=== PATIENT | female | born 1940 | race Caucasian/White ===

== ENCOUNTER 2023-08-17 13:43 | Emergency (ER) | payer OTHER, SELFPAY ==
[2023-08-17 13:49] VITALS: BP 169/58
[2023-08-17 14:08] LABS: % Basophils 0.6 % (0-2); % Eosinophils 2.8 % (0-6); % Immature Granulocytes 0.2 % (0-0.5); % Lymphocytes 31.6 % (20.5-51.1); % Neutrophils 54.8 % (42.2-75.2); Absolute Eosinophils 0.2 10^3/uL (0-0.7); Absolute Lymphocytes 2.1 10^3/uL (1.2-3.4); Absolute Monocytes 0.7 10^3/uL (0.1-0.6); Absolute Neutrophils 3.6 10^3/uL (1.4-6.5); Hematocrit 38.7 % (37.0-47.0); Hemoglobin 13.2 g/dL (12.0-16.0); Mean Corp Hgb Conc. 34.1 g/dL (33.0-37.0); Mean Corpuscular Hgb 30.6 pg (27.0-31.0); Mean Corpuscular Volume 89.6 fL (81.0-99.0); Mean Platelet Volume 9.4 fL (7.4-10.4); Nucleated Red Blood Cells % 0 %; Platelet Count 246 10^3/uL (130-400); Red Blood Cell Count 4.32 10^6/uL (4.20-5.40); Red Cell Dist. Width 13.7 % (11.5-14.5); White Blood Cell Count 6.5 10^3/uL (4.8-10.8)
[2023-08-17 14:34] LABS: ALT (SGPT) 27 U/L (0-35); AST (SGOT) 26 U/L (14-36); Albumin 4.3 g/dl (3.5-5.0); Alkaline Phosphatase 103 U/L (38-126); Blood Urea Nitrogen 23 mg/dl (7-17); Carbon Dioxide 29 mmol/L (22-30); Chloride 104 mmol/L (98-107); Glucose 96 mg/dl (70-99); Potassium 4.8 mmol/L (3.5-5.1); Sodium 139 mmol/L (135-145); Total Bilirubin 0.4 mg/dl (0.2-1.3); Total Protein 6.6 g/dl (6.3-8.2); eGFR > 60.00
[2023-08-17 14:36] LABS: Troponin I < 0.012 ng/ml
[2023-08-17 16:11] VITALS: BP 149/61; BMI 28.5
--- NOTE | 2023-08-17 16:11 | ED.GENMED ---
History of Present Illness
<Bubba Tsang PA-C - Last Filed: 08/17/23 21:45>
General
Chief Complaint: Chest Pain
Source: patient
Exam Limitations: none
Time Seen by Provider: 08/17/23 15:57
Travel History
Have you had any contact with someone who has COVID-19?: No
Do you have any symptoms of coronavirus? Fever > 100 degrees, chills, cough, shortness of breath, sore throat, loss of taste or smell, muscle aches, or headache?: No
History of Present Illness
History of Present Illness:
83-year-old female with history of [id number]-ruihoiz-vllxhrjsm diabetes, hyperlipidemia presents with epigastric abdominal pain that radiates to the back. This started 5 days ago and doing fairly constant. Does seem to get worse with eating. She denies
shortness of breath. No leg swelling or calf pain. The pain is not pleuritic. She states at the onset of her symptoms she had loose watery stools for 2 days and developed pain. No urinary symptoms. Prior abdominal surgical history includes
partial colectomy secondary to precancerous lesion found. She also has history of appendectomy.
Past History
<Bubba Tsang PA-C - Last Filed: 08/17/23 21:45>
Past History
ED Past Medical History: HTN, Hypercholesterolemia and Other (kidney stones, medulllary sponge kidney, UTI's)
ED Past Surgical History: Other (Kidney surgery)
Social History
Tobacco: Non-smoker
Alcohol: None
Personal:
Living: with family
Employment: Employed
Phy Exam
<Bubba Tsang PA-C - Last Filed: 08/17/23 21:45>
Physical Exam
Physical Exam:
General: Well-appearing female no acute respiratory distress
HEENT: Normocephalic atraumatic
Heart: Regular rate and rhythm no murmurs
Lungs: Clear no wheeze or rales
Abdomen soft tender to the epigastric region positive Ross sign and tender to the right upper quadrant. Mild bilateral costovertebral angle tenderness as well nondistended no lower quadrant tenderness
Extremities: No cyanosis or edema
Scores
<Bubba Tsang PA-C - Last Filed: 08/17/23 21:45>
Heart Score for Chest Pain Patients
STEMI patient?: No
History: Slightly or Non-Suspicious
ECG: Normal
Age: >/= 65 years
Risk Factors: No Risk Factors
Troponin: </= Normal Limit
Heart Score for Chest Pain Patients: 2
Heart Score Risk: 2.5% MACE over next 6 weeks
Course
<Bubba Tsang PA-C - Last Filed: 08/17/23 21:45>
Orders/Labs/Results
Orders:
Orders
08/17/23 13:48
Electrocardiogram (*1) Urgent
Reason for Study: Chest Pain
EKG- Treatment ONCE
08/17/23 14:00
Complete Blood Count/With Diff Urgent
Comprehensive Metabolic Panel Urgent
Lipase Urgent
Comment: LIPASE ADDED ON BY FLOOR 4PM 08-17-23
Troponin I Urgent
08/17/23 16:09
Add On- LAB Urgent
Tests Added?: lipase
US Abdomen Complete/Upper Urgent
Comment:
Reason For Exam: RUQ pain
08/17/23 17:26
Urinalysis Reflex To Culture Urgent
Date Specimen was Collected: 08/17/23
Time Specimen was Collected: 17:24
Urine Microscopic Reflex Cult Urgent
Urine Culture Urgent
ASHISH Source: U
Specimen Description:
Date Specimen was Collected: 08/17/23
Time Specimen was Collected: 17:24
08/17/23 18:45
CT Abd/pelvis W Iv Cont Urgent
Comment:
Reason For Exam: abdominal pain
Abnormal Lab Results
08/17/23 08/17/23
14:00 17:26
Absolute Monos (auto) 0.7 H 10^3/uL
(0.1-0.6)
Monocytes % 10.0 H %
(1.7-9.3)
BUN 23 H mg/dl
(7-17)
Creatinine 0.5 L mg/dL
(0.6-1.0)
Urine Ketones 1+ A
(Negative)
Leukocyte Esterase Rfl 1+ A
(Negative)
Urine WBC (Reflex) 11-15 A /HPF
(0-5)
Urine Bacteria (Reflex) Moderate A
(Negative)
08/17/23 14:00
08/17/23 14:00
Vital Signs
Initial and Last Documented VS:
Initial Vital Signs
Temp Pulse Resp BP Pulse Ox
98.0 F 64 18 169/58 96
08/17/23 13:49 08/17/23 13:49 08/17/23 13:49 08/17/23 13:49 08/17/23 13:49
Last Documented Vital Signs
Temp Pulse Resp BP Pulse Ox
98.0 F 58 21 148/60 98
08/17/23 13:49 08/17/23 20:00 08/17/23 20:00 08/17/23 20:00 08/17/23 18:36
<John Mccray MD - Last Filed: 08/17/23 18:55>
Orders/Labs/Results
Orders:
Orders
08/17/23 13:48
Electrocardiogram (*1) Urgent
Reason for Study: Chest Pain
EKG- Treatment ONCE
08/17/23 14:00
Complete Blood Count/With Diff Urgent
Comprehensive Metabolic Panel Urgent
Lipase Urgent
Comment: LIPASE ADDED ON BY FLOOR 4PM 08-17-23
Troponin I Urgent
08/17/23 16:09
Add On- LAB Urgent
Tests Added?: lipase
US Abdomen Complete/Upper Urgent
Comment:
Reason For Exam: RUQ pain
08/17/23 17:26
Urinalysis Reflex To Culture Urgent
Date Specimen was Collected: 08/17/23
Time Specimen was Collected: 17:24
Urine Microscopic Reflex Cult Urgent
Urine Culture Urgent
ASHISH Source: U
Specimen Description:
Date Specimen was Collected: 08/17/23
Time Specimen was Collected: :
08/17/23 18:45
CT Abd/pelvis W Iv Cont Urgent
Comment:
Reason For Exam: abdominal pain
Abnormal Lab Results
08/17/23 08/17/23
14:00 17:26
Absolute Monos (auto) 0.7 H 10^3/uL
(0.1-0.6)
Monocytes % 10.0 H %
(1.7-9.3)
BUN 23 H mg/dl
(7-17)
Creatinine 0.5 L mg/dL
(0.6-1.0)
Urine Ketones 1+ A
(Negative)
Leukocyte Esterase Rfl 1+ A
(Negative)
Urine WBC (Reflex) 11-15 A /HPF
(0-5)
Urine Bacteria (Reflex) Moderate A
(Negative)
08/17/23 14:00
08/17/23 14:00
Vital Signs
Initial and Last Documented VS:
Initial Vital Signs
Temp Pulse Resp BP Pulse Ox
98.0 F 64 18 169/58 96
08/17/23 13:49 08/17/23 13:49 08/17/23 13:49 08/17/23 13:49 08/17/23 13:49
Last Documented Vital Signs
Temp Pulse Resp BP Pulse Ox
98.0 F 58 21 148/60 98
08/17/23 13:49 08/17/23 20:00 08/17/23 20:00 08/17/23 20:00 08/17/23 18:36
<Bubba Tsang PA-C - Last Filed: 08/17/23 21:45>
MDM/Problems Addressed
Differential Diagnosis Includes:
Patient triaged as chest pain however her exam is more consistent with abdominal pain. Consider gastritis versus pancreatitis versus ulcer versus biliary colic. Cardiac workup done through triage includes EKG that shows sinus bradycardia without
ischemic changes and a negative troponin. No need for repeat troponin given the chronic nature of the pain for 5 days. Do not suspect ACS. Pain is not pleuritic she is not short of breath. Do not suspect PE. Ultrasound pending.
<Bubba Tsang PA-C - Last Filed: 08/17/23 21:45>
*Critical Care Note
Total Time (30-74mins, 75-104mins- exclusive of procedures): Not Applicable
<Bubba Tsang PA-C - Last Filed: 08/17/23 21:45>
Update Note
Update Note:
Ultrasound inconclusive. Patient with persistent pain discussed with attending. Ordered CT scan which demonstrates 5 mm stone in the proximal right ureter. There is moderate bacteria with lites in the urine. Patient does not have a fever serum
white count is normal. Discussed options for treatment. Patient has been here nearly all days expressing her desire to go home. Will send her home with Omnicef and pain control but with strict return precautions including fever increased pain or
vomiting. She knows to follow-up with her urologist.
ED Attending Note
<Bubba Tsang PA-C - Last Filed: 08/17/23 21:45>
-
Portions of this chart may have been created with voice recognition software.� Occasional wrong word or��sound alike� substitutions may have occurred due to the inherent limitations of voice recognition software.
<John Mccray MD - Last Filed: 08/17/23 18:55>
ED Attending Note
Patient seen and examined by attending physician: Yes
I performed the substantive portion of visit, reviewed & personally made and approve the management plan that is documented in note by myself or [facility].: Yes
ED Attending Note:
Ongoing vague upper abdominal discomfort x 5 to 6 days. Not related to eating. No fever some back pain with this. No vomiting no diarrhea. No chest pain or shortness of breath
On exam patient is nontoxic in no distress. Warm and dry. Lungs clear. Heart regular rate and rhythm no murmur. Abdomen soft bowel sounds present. Mild epigastric and very minimal right upper quadrant and left upper quadrant tenderness. No
rebound or guarding no mass or hernia.
Labs are stable. LFTs normal. Lipase normal. Sludge in the gallbladder. Urinalysis positive but does not explain her symptoms. Feel CT is warranted and if negative stable for discharge to follow-up
Discharge Plan
Departure
Patient Disposition: Home (Routine Discharge)
Date of Disposition: 08/17/23
Time of Disposition: 21:41
Patient with high blood pressure during this ER visit?: No
Discharge Problem:
Kidney stone
Instructions: Kidney Stone, Adult ED
Prescriptions:
New
cefdinir 300 mg capsule
300 mg PO BID Qty: 14 0RF
tamsulosin [Flomax] 0.4 mg capsule
0.4 mg PO DAILY Qty: 10 0RF
hydrocodone-acetaminophen 5-325 mg tablet
1 tab PO Q8H PRN (Reason: Pain) Qty: 7 0RF
No Action
losartan 50 MG tablet
50 mg PO BID
isosorbide mononitrate 30 MG tablet extended release 24 hr
30 mg PO DAILY
aspirin [Santana Low Dose Aspirin] 81 MG tablet,delayed release (DR/EC)
81 mg PO DAILY
diltiazem HCl 120 MG capsule,ext.rel 24h degradable
120 mg PO HS
atorvastatin 20 MG tablet
20 mg PO HS
vitamins A,C,H-xeya-ndveht [PreserVision AREDS] 1 CAP capsule
1 cap PO BID
diphenhydramine-acetaminophen [Tylenol PM Extra Strength] 1 EACH tablet
2 tab PO PRN PRN (Reason: pain)
metformin 500 MG tablet
500 mg PO BID
meloxicam 15 MG tablet
15 mg PO PRN PRN (Reason: knee pain)
ezetimibe 10 MG tablet
10 mg PO DAILY
metaxalone 800 mg tablet
800 mg PO BID Qty: 14 0RF
Referrals:
Carl Marcum MD [Family Provider] -
Vipin Perez MD [Active] -
Activity Restrictions/Additional Instructions:
Drink plenty of fluids. Take antibiotics as directed. Please return here for fever increased pain vomiting otherwise follow-up closely with your urologist. As discussed you have a kidney stone.
Interventions
Interventions:
*Risk Screen - Suicide Last Done: 08/17/23 16:12
*General Assessment Last Done: 08/17/23 16:12
*Neglect/Abuse Screening Last Done: 08/17/23 16:12
ED- Cardiac Assessment Last Done: 08/17/23 16:15
Discharge Date and Time
Print Language: THAI
[2023-08-17 16:13] VITALS: BP 149/61
[2023-08-17 16:44] LABS: Lipase 104 U/L (23-300)
[2023-08-17 17:00] VITALS: BP 147/51
[2023-08-17 17:35] LABS: Urine Albumin Negative (Neg - Trace); Urine Bilirubin Negative (Negative); Urine Character Clear (Clear); Urine Color Yellow; Urine Glucose Negative (Negative); Urine Ketone 1+ (Negative); Urine Leukocyte 1+ (Negative); Urine Nitrite Negative (Negative); Urine Occult Blood Negative (Negative); Urine Specific Gravity 1.015 (<1.030); Urine Urobilinogen Negative (Neg - 1+)
[2023-08-17 17:50] LABS: Urine Bacteria Moderate (Negative); Urine Red Blood Cell 0-2 /HPF (0-2)
[2023-08-17 18:36] VITALS: BP 141/49
[2023-08-17 20:00] VITALS: BP 148/60
== END 2023-08-17 22:42 | disposition home or self-care (01) ==
LOC: EMR 13:43
PROVIDERS: Emergency Medicine; Physician Assistant; EMERGENCY PHYSICIAN Emergency Medicine; FAMILY PHYSICIAN Family Medicine
DX: N20.0 Calculus of kidney (principal); E78.00 Pure hypercholesterolemia, unspecified; I10 Essential (primary) hypertension; E11.9 Type 2 diabetes mellitus without complications; Z87.440 Personal history of urinary (tract) infections; Z87.442 Personal history of urinary calculi; Z90.49 Acquired absence of other specified parts of digestive tract
CPT/HCPCS: 99284; 74177; 76700; 80053; 81003; 81015; 83690; 84484; 85025; 87086; 93005; Q9967

== ENCOUNTER → 2023-08-23 10:20 | Outpatient (REF) | payer OTHER, SELFPAY | LOC: RAD 10:20 | PROVIDERS: ATTENDING PHYSICIAN Specialist; FAMILY PHYSICIAN Family Medicine | DX: N20.1 Calculus of ureter (principal) | CPT/HCPCS: 74018 ==

== ENCOUNTER 2023-08-24 06:32 | Day surgery (SDC) | payer OTHER, SELFPAY ==
[2023-08-24] VITALS (8 sets, daily range): BP systolic 106–152; BP diastolic 49–63; BMI 27.3
[2023-08-24 08:10] LABS: Glucose - Point of Care 129 mg/dl (70-99)
[2023-08-24] MEDS: NORMOSOL-R 1000 IV (08:10)
[2023-08-24] MEDS: Pyridium 200 MG PO (08:10)
[2023-08-24 10:01] LABS: Glucose - Point of Care 115 mg/dl (70-99)
[2023-08-24 10:14] LABS: Urine Albumin Negative (Neg - Trace); Urine Bilirubin 2+ (Negative); Urine Character Clear (Clear); Urine Glucose Negative (Negative); Urine Ketone Negative (Negative); Urine Leukocyte Trace (Negative); Urine Nitrite Positive (Negative); Urine Occult Blood Negative (Negative); Urine Specific Gravity 1.015 (<1.030); Urine Urobilinogen 3+ (Neg - 1+)
[2023-08-24 10:17] LABS: Urine Color Orange
[2023-08-24 10:36] LABS: Urine Mucus Few
[2023-08-24 10:37] LABS: Urine Bacteria Few (Negative); Urine Red Blood Cell 0-2 /HPF (0-2)
[2023-08-24 11:10] LABS: Glucose - Point of Care 98 mg/dl (70-99)
== END 2023-08-24 12:39 | disposition home or self-care (01) ==
LOC: SDS 06:32
PROVIDERS: ATTENDING PHYSICIAN Specialist
DX: N20.1 Calculus of ureter (principal)
CPT/HCPCS: 52356; 74018; 76000; 81003; 81015; 82365; 82962; 87086; C1894; C2617

== ENCOUNTER → 2023-12-14 11:15 | Outpatient (REF) | payer OTHER, SELFPAY | LOC: WDC 11:15 | PROVIDERS: ATTENDING PHYSICIAN Obstetrics & Gynecology Gynecology; FAMILY PHYSICIAN Family Medicine | DX: Z12.31 Encounter for screening mammogram for malignant neoplasm of breast (principal) | CPT/HCPCS: 77063; 77067 ==

== ENCOUNTER → 2023-12-31 10:03 | Outpatient (REF) | payer OTHER, SELFPAY | LOC: RAD 10:03 | PROVIDERS: ATTENDING PHYSICIAN Family Medicine | DX: Z00.00 Encounter for general adult medical examination without abnormal findings (principal); Z68.26 Body mass index [BMI] 26.0-26.9, adult; I10 Essential (primary) hypertension; Z78.0 Asymptomatic menopausal state; M85.88 Other specified disorders of bone density and structure, other site | CPT/HCPCS: 77080 ==

== ENCOUNTER → 2024-01-05 11:14 | Outpatient (REF) | payer OTHER, SELFPAY | LOC: HWRAD 11:14 | PROVIDERS: ATTENDING PHYSICIAN Family Medicine | DX: R13.19 Other dysphagia (principal) | CPT/HCPCS: 71046 ==

== ENCOUNTER → 2024-01-11 09:45 | Outpatient (REF) | payer OTHER, SELFPAY | LOC: RAD 09:45 | PROVIDERS: ATTENDING PHYSICIAN Family Medicine | DX: E11.69 Type 2 diabetes mellitus with other specified complication (principal); R10.11 Right upper quadrant pain | CPT/HCPCS: 76700 ==

== ENCOUNTER 2024-02-16 06:21 | Day surgery (SDC) | payer OTHER, SELFPAY ==
[2024-02-16 08:23] LABS: Glucose - Point of Care 112 mg/dl (70-99)
== END 2024-02-16 10:25 | disposition home or self-care (01) ==
LOC: GI 06:21
PROVIDERS: ATTENDING PHYSICIAN Internal Medicine Gastroenterology
DX: K22.89 Other specified disease of esophagus (principal); K22.2 Esophageal obstruction; K31.89 Other diseases of stomach and duodenum; K25.9 Gastric ulcer, unspecified as acute or chronic, without hemorrhage or perforation; R13.10 Dysphagia, unspecified; B37.81 Candidal esophagitis
CPT/HCPCS: 43239; 88305; 88312; 82962; 88342

== ENCOUNTER → 2024-12-15 11:14 | Outpatient (REF) | payer OTHER, SELFPAY | LOC: WDC 11:14 | PROVIDERS: ATTENDING PHYSICIAN Obstetrics & Gynecology Gynecology; FAMILY PHYSICIAN Family Medicine | DX: Z12.31 Encounter for screening mammogram for malignant neoplasm of breast (principal) | CPT/HCPCS: 77063; 77067 ==

== ENCOUNTER → 2025-01-24 10:05 | Outpatient (REF) | payer OTHER, SELFPAY | LOC: HWRAD 10:05 | PROVIDERS: ATTENDING PHYSICIAN Family Medicine | DX: Z85.118 Personal history of other malignant neoplasm of bronchus and lung (principal); Z90.2 Acquired absence of lung [part of] | CPT/HCPCS: 71250 ==